=== PATIENT | male | born 1990 | race Caucasian/White ===

== ENCOUNTER 2020-09-03 08:40 | Emergency (ER) | payer SELFPAY ==
[~2020-09-03] VITALS: Ht 185.4 cm; Wt 63.5 kg
[~2020-09-03 08:40] MED LIST: ATOM60; CYCL10 PO; GENT.3OPO TOP; HYDACE5325 PO; Norco 5-325 Ta1 EACH PO; OXYACE5T PO; PERM5TC TOP
[2020-09-03] MEDS ORDERED: CEPH500 PO (11:26)
== END 2020-09-03 11:31 | disposition home or self-care (01) ==
LOC: ER 08:40
DX: S52.124A Nondisplaced fracture of head of right radius, initial encounter for closed fracture (principal); F17.200 Nicotine dependence, unspecified, uncomplicated; X58.XXXA Exposure to other specified factors, initial encounter
CPT/HCPCS: 70450; 71046; 73030; 73080; 73130; 90471; 90714; 99283-25